=== PATIENT | male | born 1950 | race African-American/Black ===

== ENCOUNTER → 2017-01-01 | Outpatient (CLI) | payer OTHER ==
[~2017-01-01] MED LIST: REGADENOSON INJ 0.4 MG/5 ML DISP.SYRIN IV ONE
--- NOTE | 2017-01-02 07:47 | RADIOLOGY REPORT ---
STRESS TEST REPORT PATIENT NAME: TJ HARMON ROOM#: DATE OF SERVICE: 01/01/17 AGE: 66Y ORDER#: [id number] REFERRING MD: ODALYS CAMACHO INDICATION: Assessment of atypical chest pain. Patient is diabetic. PROCEDURE PERFORMED REST/STRESS SINGLE ISOTOPE CARDIOLITE SPECT IMAGING WITH IV LEXISCAN STRESS AND GATED SPECT IMAGING CLINICAL HISTORY This is a 66 year old black male with no known coronary artery disease has cardiac risk factors of diabetes, hypertension, and hyperlipidemia. Current symptomatology includes diabetes and atypical chest pains. Patient denies ever having any chest pains or exertional dyspnea. PROCEDURE The patient received IV Lexiscan 0.4 mg infused over 10 seconds and flushed. Resting heart rate was 71 bpm and increased to 96 bpm at end infusion. The resting blood pressure was 163/100 and reduced to 155/92 at end infusion. The patient had symptoms of flushing in the chest, but no chest pains or shortness of breath. Resting 12 lead EKG showed normal sinus rhythm 69 bpm with nonspecific inferior and anterior T inversions. At end infusion, no increased T inversions were seen. Myocardial perfusion imaging was performed at rest 60 minutes following injection of 13.65 mCi Cardiolite. 10 seconds after IV Lexiscan injection, the patient was injected with 39.4 mCi Cardiolite and flushed. Gated post stress tomographic imaging was performed 60 minutes after stress. FINDINGS The overall quality of the study is good. Left ventricular cavity is noted to be normal in size on both the rest and stress studies. There is no evidence of abnormal transient ischemic dilatation of the left ventricle. The TID ratio was 1.03. SPECT images showed homogenous tracer distribution throughout the LV myocardium with no evidence of IV Lexiscan induced reversible ischemia and no fixed perfusion defect. Gated SPECT imaging showed normal motion contraction of all LV segments. The left ventricular ejection fraction was 62%. SUMMARY OF FINDINGS/IMPRESSION: 1. MYOCARDIAL PERFUSION IMAGING IS NORMAL. 2. THERE IS NO EVIDENCE OF IV LEXISCAN INDUCED REVERSIBLE ISCHEMIA AND 3. NO FIXED PERFUSION DEFECT. 4. OVERALL, LEFT VENTRICULAR SYSTOLIC FUNCTION WAS NORMAL AND THERE WAS 5. NO REGIONAL WALL MOTION ABNORMALITY SEEN. 6. NO PRIOR STUDY FOR COMPARISON. INTERPRETING PHYSICIAN: TRUE DEGROOT M.D. /: CY TT: 0740 ID: [id number] /: [id number] TD: [id number] JOB: [id number] cc:Shaun PAYNE > ZION
== END ==
LOC: RAD 06:20
PROVIDERS: ATTEND Nurse Practitioner Adult Health
DX: R07.89 Other chest pain (principal); I10 Essential (primary) hypertension; E78.5 Hyperlipidemia, unspecified; E11.9 Type 2 diabetes mellitus without complications
CPT/HCPCS: 93017; 78452; A9500; J2785; Q9969

== ENCOUNTER 2018-03-09 12:52 | Emergency (ER) | payer OTHER ==
--- NOTE | 2018-03-09 13:01 | ER Document Report ---
ED General - General Stated Complaint: VOMITING Time Seen by Provider: 03/09/18 13:00 Mode of Arrival: Medic Information source: Patient, Emergency Med Personnel Notes: 67-year-old gentleman presented today for evaluation of vomiting. According to patient he developed diarrhea and vomiting yesterday. Today he went to [facility] and developed persistent vomiting and called EMS. Upon arrival patient is retching. Patient denies any symptoms of dizziness, vertigo, chest pain or shortness of breath. Patient was given IV fluids as well as Zofran upon arrival. TRAVEL OUTSIDE OF THE [place] IN LAST 30 DAYS: No - Related Data Allergies/Adverse Reactions: No Known Allergies Allergy (Verified 03/09/18 15:17) Past Medical History - General Information source: Patient - Social History Smoking Status: Current Every Day Smoker Family History: None Review of Systems - Review of Systems Notes: REVIEW OF SYSTEMS: CONSTITUTIONAL: -fevers, -chills EENT: -eye pain, -difficulty swallowing, -nasal congestion CARDIOVASCULAR: -chest pain, -syncope. RESPIRATORY: -cough, -SOB GASTROINTESTINAL: -abdominal pain, + nausea, + vomiting, +diarrhea GENITOURINARY: -dysuria, -hematuria MUSCULOSKELETAL: -back pain, -neck pain SKIN: -rash or skin lesions. HEMATOLOGIC: -easy bruising or bleeding. LYMPHATIC: -swollen, enlarged glands. NEUROLOGICAL: -altered mental status or loss of consciousness, -headache, - neurologic symptoms PSYCHIATRIC: -anxiety, -depression. ALL OTHER SYSTEMS REVIEWED AND NEGATIVE. Physical Exam - Vital signs Vitals: Temp Pulse Resp BP Pulse Ox 98 F 69 16 118/60 94 03/09/18 12:57 03/09/18 12:57 03/09/18 12:57 03/09/18 12:57 03/09/18 12:57 - Notes Notes: Reviewed vital signs and nursing note as charted by RN. CONSTITUTIONAL: Alert and oriented and responds appropriately to questions, actively vomiting HEAD: Normocephalic; atraumatic EYES: PERRL; Conjunctivae clear, sclerae non-icteric ENT: normal nose; no rhinorrhea; dry mucous membranes; pharynx without lesions noted NECK: Supple without meningismus; non-tender; no cervical lymphadenopathy, no masses CARD: Regular rate and rhythm; no murmurs, no clicks, no rubs, no gallops; symmetric distal pulses RESP: Normal chest excursion without splinting or tachypnea; breath sounds clear and equal bilaterally ABD/GI: Normal bowel sounds; non-distended; soft, nontender BACK: The back appears normal and is non-tender to palpation EXT: Normal ROM in all joints; non-tender to palpation; no cyanosis, no effusions, no edema SKIN: Normal color for age and race; warm; dry; good turgor; capillary refill < 2 seconds; no acute lesions noted NEURO: Cranial nerves 3-12 intact. Motor strength 5/5 bilaterally. Sensation intact to touch bilaterally. No pronator drift. Finger to nose intact bilaterally PSYCH: The patient's mood and manner are appropriate. Grooming and personal hygiene are appropriate. Course - Re-evaluation Re-evalutation: 67-year-old gentleman here for evaluation of vomiting as well as diarrhea Differential diagnoses includes dehydration, electrolyte abnormalities, acute gastroenteritis, ACS, pneumonia, acute cystitis, pancreatitis We will obtain basic lab work including CBC, CMP, lipase, urinalysis Chest x-ray, EKG, cardiac biomarkers We will give patient IV fluids 2 L, IV Zofran Reassess 03/09/18 17:27 Patient is doing better after IV fluids Patient has normal cardiac workup including normal EKG as well as undetectable troponin Patient had mild acute kidney injury likely secondary to dehydration and nausea and vomiting since yesterday Patient received 2 L of IV fluids with improvement of his symptoms He feels comfortable going home, patient will be given Zofran for his symptoms Stricter precautions were given to come back if his symptoms are not improving - Vital Signs Vital signs: Temp Pulse Resp BP Pulse Ox 98 F 69 17 133/98 H 98 03/09/18 12:57 03/09/18 12:57 03/09/18 16:45 03/09/18 16:45 03/09/18 16:45 - Laboratory Result Diagrams: 03/09/18 13:00 03/09/18 13:00 Laboratory results interpreted by me: 03/09/18 13:00 Creatinine 1.53 H Est GFR ( Amer) 55 L Est GFR (Non-Af Amer) 45 L Glucose 159 H - EKG Interpretation by Me Additional EKG results interpreted by me: 03/09/18 17:35 EKG interpretation 1:54 PM Right 58, sinus rhythm, normal MN interval, narrow QRS, QTC [address] elevations or depressions in any of the leads Patient has T-wave inversions in lateral leads No prior EKG available Critical Care Note - Critical Care Note Comments: Critical Care Time: 35 minutes Critical care provider statement: Critical care time was exclusive of: Separately billable procedures and treating other patients and teaching time Critical care was time spent personally by me on the following activities: Blood draw for specimens, development of treatment plan with patient or surrogate, evaluation of patient's response to treatment, examination of patient , obtaining history from patient or surrogate, ordering and performing treatments and interventions, ordering and review of laboratory studies, ordering and review of radiographic studies, pulse oximetry, re-evaluation of patient's condition and review of old charts I assumed direction of critical care for this patient from another provider in my specialty: no Discharge - Discharge Clinical Impression: RAJIV (acute kidney injury), Nausea & vomiting, Diarrhea Instructions: Antinausea Medication ([facility]), Diarrhea, Nonspecific ([facility]), Vomiting ([facility]) Prescriptions: Ondansetron [Zofran Odt 4 mg Tablet] 1 - 2 tab PO Q4H PRN #15 tab.rapdis PRN Reason: For Nausea/Vomiting Referrals: FERNANDO VIVAR MD [Primary Care Provider] - Follow up in 3-5 days
[2018-03-09] MEDS ORDERED: ONDANSETRON HCL INJ/PF 4 MG/2 ML SDV IV ONE (13:21)
[2018-03-09 13:28] LABS: ABSOLUTE EOSINOPHILS # (AUTO) 0.1 10^3/uL (0.0-0.6); ABSOLUTE LYMPHOCYTES (AUTO) 3.1 10^3/uL (0.5-4.7); ABSOLUTE MONOCYTES (AUTO) 0.7 10^3/uL (0.1-1.4); BASOPHILS % (AUTO) 0.2 % (0-2); EOSINOPHILS % (AUTO) 1.3 % (0-6); HEMATOCRIT 44.3 % (37.9-51.0); HEMOGLOBIN 15.2 g/dL (13.5-17.0); LYMPHOCYTES % (AUTO) 44.4 % (13-45); MEAN CORPUSCULAR HEMOGLOBIN 30.8 pg (27.0-33.4); MEAN CORPUSCULAR HGB CONC 34.4 g/dL (32.0-36.0); MEAN CORPUSCULAR VOLUME 90 fl (80-97); MONOCYTES % (AUTO) 10.3 % (3-13); PLATELET COUNT 178 10^3/uL (150-450); RED BLOOD COUNT 4.94 10^6/uL (4.35-5.55); RED CELL DISTRIBUTION WIDTH 13.4 % (11.5-14.0); SEGMENTED NEUTROPHILS % (AUTO) 43.8 % (42-78); TOTAL CELLS COUNTED % (AUTO) 100 %; WHITE BLOOD COUNT 6.9 10^3/uL (4.0-10.5)
[2018-03-09 13:35] LABS: ALANINE AMINOTRANSFERASE 31 U/L (21-72); ALBUMIN 4.4 g/dL (3.5-5.0); ALKALINE PHOSPHATASE 57 U/L (38-126); ANION GAP 13 (5-19); ASPARTATE AMINO TRANSFERASE 31 U/L (17-59); BILIRUBIN,DIRECT 0.3 mg/dL (0.0-0.4); BILIRUBIN,TOTAL 0.8 mg/dL (0.2-1.3); BLOOD UREA NITROGEN 18 mg/dL (7-20); CALCIUM 9.3 mg/dL (8.4-10.2); CARBON DIOXIDE 25 mmol/L (22-30); CHLORIDE 101 mmol/L (98-107); GLUCOSE 159 mg/dL (75-110); LIPASE 49.8 U/L (23-300); POTASSIUM 3.6 mmol/L (3.6-5.0); SODIUM 138.8 mmol/L (137-145); TOTAL PROTEIN 7.6 g/dL (6.3-8.2)
--- NOTE | 2018-03-09 13:43 | RADIOLOGY REPORT (SQ) ---
EXAM DESCRIPTION: CHEST 2 VIEWS COMPLETED DATE/TIME: 03/09/2018 1:34 pm REASON FOR STUDY: chest pain COMPARISON: None. NUMBER OF VIEWS: Two view. TECHNIQUE: Frontal and lateral radiographic views of the chest acquired. LIMITATIONS: None. FINDINGS: LUNGS AND PLEURA: No opacities, masses or pneumothorax. No pleural effusion. MEDIASTINUM AND HILAR STRUCTURES: No masses. No contour abnormalities. HEART AND VASCULAR STRUCTURES: Heart enlarged without failure. Aorta normal for age. BONES: No acute findings. HARDWARE: None in the chest. OTHER: No other significant finding. IMPRESSION: CARDIAC ENLARGEMENT WITHOUT FAILURE. TECHNICAL DOCUMENTATION: JOB ID: [id number] [employer]- All Rights Reserved Reading location - IP/workstation name: [email or web address]
[2018-03-09] MEDS: NORMAL SALINE 1000 ML 1,000 ML IV PRN ×2 (13:51→13:57)
--- NOTE | 2018-03-09 15:57 | EKG REPORT ---
SEVERITY:- ABNORMAL ECG - SINUS RHYTHM LEFT VENTRICULAR HYPERTROPHY BORDERLINE T ABNORMALITIES, INFERIOR LEADS : Confirmed by: Corwin Lawrence MD 09-Mar-2018 15:56:33
[2018-03-09 17:38] VITALS: BP 130/89
== END 2018-03-09 17:48 | disposition home or self-care (01) ==
LOC: ER 12:52
DX: N17.9 Acute kidney failure, unspecified (principal); R11.2 Nausea with vomiting, unspecified; R19.7 Diarrhea, unspecified; F17.200 Nicotine dependence, unspecified, uncomplicated
CPT/HCPCS: 93005; 99291; 96361; 96374; 36415; 83690; 85025; 80053; 84484; 71046; 93010; J2405; J7030

== ENCOUNTER 2019-08-30 14:46 | Emergency (ER) | payer OTHER, MEDICARE ==
[2019-08-30 15:01] LABS: ABSOLUTE EOSINOPHILS # (AUTO) 0.2 10^3/uL (0.0-0.6); ABSOLUTE LYMPHOCYTES (AUTO) 2.8 10^3/uL (0.5-4.7); ABSOLUTE MONOCYTES (AUTO) 0.5 10^3/uL (0.1-1.4); ABSOLUTE NEUT (AUTO) 2.5 10^3/uL (1.7-8.2); BASOPHILS % (AUTO) 0.5 % (0-2); EOSINOPHILS % (AUTO) 2.8 % (0-6); HEMATOCRIT 40.6 % (37.9-51.0); HEMOGLOBIN 14.3 g/dL (13.5-17.0); LYMPHOCYTES % (AUTO) 46.9 % (13-45); MEAN CORPUSCULAR HEMOGLOBIN 30.8 pg (27.0-33.4); MEAN CORPUSCULAR HGB CONC 35.2 g/dL (32.0-36.0); MEAN CORPUSCULAR VOLUME 88 fl (80-97); MONOCYTES % (AUTO) 7.7 % (3-13); PLATELET COUNT 221 10^3/uL (150-450); RED BLOOD COUNT 4.64 10^6/uL (4.35-5.55); RED CELL DISTRIBUTION WIDTH 13.4 % (11.5-14.0); SEGMENTED NEUTROPHILS % (AUTO) 42.1 % (42-78); TOTAL CELLS COUNTED % (AUTO) 100 %
[2019-08-30 15:30] LABS: ALBUMIN 4.2 g/dL (3.5-5.0); ALKALINE PHOSPHATASE 69 U/L (38-126); ANION GAP 9 (5-19); ASPARTATE AMINO TRANSFERASE 23 U/L (17-59); BILIRUBIN,TOTAL 0.5 mg/dL (0.2-1.3); BLOOD UREA NITROGEN 15 mg/dL (7-20); CALCIUM 9.6 mg/dL (8.4-10.2); CARBON DIOXIDE 27 mmol/L (22-30); CHLORIDE 102 mmol/L (98-107); CREATINE KINASE 226 U/L (55-170); GLUCOSE 136 mg/dL (75-110); POTASSIUM 3.4 mmol/L (3.6-5.0); TOTAL PROTEIN 7.6 g/dL (6.3-8.2)
--- NOTE | 2019-08-30 15:35 | ER Document Report ---
ED Syncope and Near Syncope - General Chief Complaint: Syncope Stated Complaint: SYNCOPE Time Seen by Provider: 08/30/19 15:19 Primary Care Provider: FERNANDO VIVAR MD [Primary Care Provider] - Follow up as needed Notes: 68-year-old male with glaucoma, diabetes, PTSD presents to the emergency department with chief complaint of syncopal episode. Patient states he was [place] [employer] and started getting dizzy similar to episodes when his blood sugar would get low in the past so he popped a peppermint candy in his mouth. He had not quite finished it when he stood up out of the chair and it was reported that he fell back into the chair. He was brought in by EMS. Denies any diaphoresis, denies headache, denies vision changes, complains of some nausea but no vomiting, denies shortness of breath or dyspnea on exertion, denies abdominal pain. TRAVEL OUTSIDE OF THE [place] IN LAST 30 DAYS: No - Related Data Allergies/Adverse Reactions: No Known Allergies Allergy (Verified 03/09/18 15:17) Past Medical History - Social History Smoking Status: Unknown if Ever Smoked Family History: None Patient has suicidal ideation: No Patient has homicidal ideation: No - Past Medical History Cardiac Medical History: Reports: Hx Hypercholesterolemia, Hx Hypertension Endocrine Medical History: Reports: Hx Diabetes Mellitus Type 2 Renal/ Medical History: Denies: Hx Peritoneal Dialysis Review of Systems - Review of Systems Constitutional: See HPI EENT: No symptoms reported Cardiovascular: See HPI Respiratory: See HPI Gastrointestinal: See HPI Genitourinary: No symptoms reported Male Genitourinary: No symptoms reported Musculoskeletal: No symptoms reported Skin: No symptoms reported Hematologic/Lymphatic: No symptoms reported Neurological/Psychological: See HPI Physical Exam - Vital signs Vitals: Temp Resp Pulse Ox 97.7 F 14 99 08/30/19 14:53 08/30/19 14:53 08/30/19 14:53 - Notes Notes: PHYSICAL EXAMINATION: Reviewed vital signs and charting by RN GENERAL: Alert, interacts well. No acute distress. HEAD: Normocephalic, atraumatic. EYES: Pupils equal and round. Extraocular movements intact. ENT: Oral mucosa moist, tongue midline. NECK: Full range of motion. Trachea midline. LUNGS: Clear to auscultation bilaterally, no wheezes, rales, or rhonchi. No respiratory distress. HEART: Regular rate and rhythm. No murmur ABDOMEN: soft, non-tender. No distention. Bowel sounds present EXTREMITIES: Moves all 4 extremities spontaneously. No edema, No cyanosis. 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 SKIN: Warm, dry, normal turgor. No rashes or lesions noted. Course - Re-evaluation Re-evalutation: 08/30/19 19:06 Overall well-appearing in no acute distress. Patient states that when he attempted to stand up early in the course he was dizzy. He received 500 mL of fluid. Patient had 2- troponins, EKG was done which showed a sinus rhythm with a rate of 61, QTC 472, read by Dr. Duvall. Patient subsequently had orthostatic vital signs done which were negative and he no longer felt dizzy. Blood sugar was 136. Patient states that the symptoms of happened in the past whenever his blood sugar was low. At this time I have low suspicion for ACS, aortic dissection, aortic aneurysm, PE, CVA, or any other concerning symptoms. I have given patient very, very strict return precautions, explained to him warning signs, and he is stable for discharge. - Vital Signs Vital signs: Temp Pulse Resp BP Pulse Ox 97.7 F 80 11 L 135/89 H 95 08/30/19 14:53 08/30/19 17:22 08/30/19 18:01 08/30/19 18:01 08/30/19 18:01 - Laboratory Result Diagrams: 08/30/19 14:53 08/30/19 14:53 Laboratory results interpreted by me: 08/30/19 08/30/19 08/30/19 14:53 14:53 16:53 Lymph % (Auto) 46.9 H Potassium 3.4 L Glucose 136 H Creatine Kinase 226 H Urine Protein 30 H Urine Blood SMALL H Discharge - Discharge Clinical Impression: Dizziness, Near syncope Condition: Good Disposition: HOME, SELF-CARE Additional Instructions: You were seen today after an episode of nearly passing out. Your EKG here is normal. All of your lab work was normal and you had 2- troponins which rules out a cardiac source. At this time, we do not feel that your episode of passing out was from any life-threatening cause. Orthostatic vital signs were done and they were normal which is reassuring that you are not dehydrated. Your sugar was normal. Please drink plenty of fluids over the next several days. Return to emergency department if you have any further episodes of syncope, headache, weakness, numbness, chest pain, or shortness of breath. Please follow up closely with your primary care physician. Referrals: FERNANDO VIVAR MD [Primary Care Provider] - Follow up as needed
[2019-08-30 15:53] LABS: CREATINE KINASE MB 1.41 ng/mL (<4.55)
[2019-08-30 15:56] LABS: TROPONIN I < 0.012 ng/mL
[2019-08-30 17:22] LABS: APPEARANCE,URINE CLEAR; BILIRUBIN,URINE NEGATIVE (NEGATIVE); COLOR,URINE YELLOW; GLUCOSE, URINE NEGATIVE (NEGATIVE); KETONES,URINE NEGATIVE (NEGATIVE); LEUKOCYTE ESTERASE,URINE NEGATIVE (NEGATIVE); NITRITE,URINE NEGATIVE (NEGATIVE); PROTEIN,URINE 30 mg/dL (NEGATIVE); URINE SPECIFIC GRAVITY 1.021; UROBILINOGEN,URINE NEGATIVE mg/dL (<2.0)
[2019-08-30 19:08] VITALS: BP 147/95
--- NOTE | 2019-08-30 22:39 | EKG REPORT ---
SEVERITY:- ABNORMAL ECG - SINUS RHYTHM LEFT VENTRICULAR HYPERTROPHY BORDERLINE T ABNORMALITIES, INFERIOR LEADS : Confirmed by: Liliana Camarillo MD 30-Aug-2019 22:38:43
== END 2019-08-30 19:30 | disposition home or self-care (01) ==
LOC: ER 14:46
DX: R55 Syncope and collapse (principal); R42 Dizziness and giddiness; I10 Essential (primary) hypertension; E11.9 Type 2 diabetes mellitus without complications; E78.00 Pure hypercholesterolemia, unspecified
CPT/HCPCS: 36415; 80053; 81001; 82550; 82553; 84484; 85025; 93005; 93010; 99284